=== PATIENT | female | born 1950 | race Caucasian/White ===

== ENCOUNTER → 2017-06-10 | Outpatient (CLI) | payer OTHER | END | disposition home or self-care (01) | LOC: OIH 13:07 | PROVIDERS: ATTEND Internal Medicine | DX: I10 Essential (primary) hypertension (principal); I70.0 Atherosclerosis of aorta | CPT/HCPCS: 71046 ==

== ENCOUNTER → 2018-04-25 | Outpatient (CLI) | payer OTHER | END | disposition home or self-care (01) | LOC: OIH 13:32 | PROVIDERS: ATTEND Internal Medicine | DX: I10 Essential (primary) hypertension (principal) | CPT/HCPCS: 71046 ==

== ENCOUNTER → 2018-11-19 | Outpatient (CLI) | payer OTHER ==
[2018-11-19 14:11] LABS: POTASSIUM 4.5 mmol/L (3.5-5.1)
== END | disposition home or self-care (01) ==
LOC: LAB 13:22
PROVIDERS: ATTEND Internal Medicine
DX: S96.919A Strain of unspecified muscle and tendon at ankle and foot level, unspecified foot, initial encounter (principal); B36.0 Pityriasis versicolor; E11.42 Type 2 diabetes mellitus with diabetic polyneuropathy; X58.XXXA Exposure to other specified factors, initial encounter; Y93.89 Activity, other specified; Y92.89 Other specified places as the place of occurrence of the external cause; Y99.8 Other external cause status
CPT/HCPCS: 36415; 80048

== ENCOUNTER → 2018-11-20 | Outpatient (CLI) | payer OTHER ==
[~2018-11-20] MED LIST: IOHEXOL-350 50ML VIAL IV ONE
== END | disposition home or self-care (01) ==
LOC: RAH 13:52
PROVIDERS: ATTEND Internal Medicine
DX: S96.919A Strain of unspecified muscle and tendon at ankle and foot level, unspecified foot, initial encounter (principal); M79.671 Pain in right foot; X58.XXXA Exposure to other specified factors, initial encounter; Y93.89 Activity, other specified; Y92.89 Other specified places as the place of occurrence of the external cause; Y99.8 Other external cause status
CPT/HCPCS: 73702; Q9967

== ENCOUNTER → 2018-12-11 | Outpatient (CLI) | payer OTHER | END | disposition home or self-care (01) | LOC: OIH 14:07 | PROVIDERS: ATTEND Internal Medicine | DX: M77.32 Calcaneal spur, left foot (principal); M79.89 Other specified soft tissue disorders | CPT/HCPCS: 73620 ==

== ENCOUNTER → 2019-03-27 | Outpatient (CLI) | payer OTHER | END | disposition home or self-care (01) | LOC: OIH 14:44 | PROVIDERS: ATTEND Internal Medicine | DX: I10 Essential (primary) hypertension (principal) | CPT/HCPCS: 71046 ==

== ENCOUNTER → 2019-04-24 | Outpatient (CLI) | payer OTHER ==
[~2019-04-24] MED LIST changes: -IOHEXOL-350 50ML VIAL IV ONE; +IOHEXOL-350 75 ML VIAL IV ONE
== END | disposition home or self-care (01) ==
LOC: RAH 13:54
PROVIDERS: ATTEND Internal Medicine
DX: M47.26 Other spondylosis with radiculopathy, lumbar region (principal); M25.78 Osteophyte, vertebrae; I70.90 Unspecified atherosclerosis; G95.9 Disease of spinal cord, unspecified
CPT/HCPCS: 72133; Q9967

== ENCOUNTER → 2019-06-18 | Outpatient (CLI) | payer OTHER ==
[2019-06-18 11:46] LABS: CREATININE 0.9 mg/dL (0.5-1.5)
== END | disposition home or self-care (01) ==
LOC: LAB 10:53
PROVIDERS: ATTEND Neurological Surgery
DX: M48.062 Spinal stenosis, lumbar region with neurogenic claudication (principal)
CPT/HCPCS: 36415; 82565; 84520

== ENCOUNTER → 2019-07-17 | Outpatient (CLI) | payer OTHER ==
[2019-07-17 10:53] LABS: BILIRUBIN,TOTAL 0.6 mg/dL (0.2-1.0); CREATININE 0.9 mg/dL (0.5-1.5); POTASSIUM 5.3 mmol/L (3.5-5.1); TOTAL PROTEIN, SERUM 7.6 g/dL (6.0-8.3)
[2019-07-17 10:55] LABS: HEMOGLOBIN A1C 7.9 % (4.0-6.0)
[2019-07-17 11:05] LABS: THYROID STIMULATING HORMONE 0.81 uIU/mL (0.36-3.74)
== END | disposition home or self-care (01) ==
LOC: LAB 09:38
PROVIDERS: ATTEND Internal Medicine
DX: E11.69 Type 2 diabetes mellitus with other specified complication (principal); E11.59 Type 2 diabetes mellitus with other circulatory complications; K76.0 Fatty (change of) liver, not elsewhere classified; E03.8 Other specified hypothyroidism; I10 Essential (primary) hypertension; Z12.11 Encounter for screening for malignant neoplasm of colon
CPT/HCPCS: 36415; 80053; 82270; 83036; 84439; 84443

== ENCOUNTER → 2019-07-24 | Outpatient (CLI) | payer OTHER ==
[~2019-07-24] MED LIST changes: +GADODIAMIDE 10 MMOL/20 ML VIAL IV ONE; -IOHEXOL-350 75 ML VIAL IV ONE
== END | disposition home or self-care (01) ==
LOC: RAH 10:00
PROVIDERS: ATTEND Internal Medicine
DX: M51.36 Other intervertebral disc degeneration, lumbar region (principal); M51.26 Other intervertebral disc displacement, lumbar region; M48.061 Spinal stenosis, lumbar region without neurogenic claudication
CPT/HCPCS: 72158; A9579

== ENCOUNTER → 2019-10-28 | Outpatient (CLI) | payer OTHER | END | disposition home or self-care (01) | LOC: OIH 13:40 | PROVIDERS: ATTEND Physical Medicine & Rehabilitation | DX: M19.071 Primary osteoarthritis, right ankle and foot (principal) | CPT/HCPCS: 73630 ==

== ENCOUNTER → 2019-11-16 | Outpatient (CLI) | payer OTHER | END | disposition home or self-care (01) | LOC: RAH 13:46 | PROVIDERS: ATTEND Physical Medicine & Rehabilitation | DX: R29.6 Repeated falls (principal) | CPT/HCPCS: 70551 ==

== ENCOUNTER → 2021-02-27 | Outpatient (CLI) | payer OTHER | END | disposition home or self-care (01) | LOC: RAH 13:00 | PROVIDERS: ATTEND Internal Medicine | DX: M19.071 Primary osteoarthritis, right ankle and foot (principal); M79.671 Pain in right foot | CPT/HCPCS: 73700 ==

== ENCOUNTER → 2021-12-21 | Outpatient (CLI) | payer OTHER | END | disposition home or self-care (01) | LOC: RAH 14:00 | PROVIDERS: ATTEND Internal Medicine | DX: M19.071 Primary osteoarthritis, right ankle and foot (principal); M47.814 Spondylosis without myelopathy or radiculopathy, thoracic region; M79.89 Other specified soft tissue disorders; Z98.890 Other specified postprocedural states | CPT/HCPCS: 73700 ==

== ENCOUNTER → 2023-02-07 | Outpatient (CLI) | payer OTHER | END | disposition home or self-care (01) | LOC: RAH 13:01 | PROVIDERS: ATTEND Internal Medicine | DX: K57.30 Diverticulosis of large intestine without perforation or abscess without bleeding (principal); K57.92 Diverticulitis of intestine, part unspecified, without perforation or abscess without bleeding; Z90.49 Acquired absence of other specified parts of digestive tract | CPT/HCPCS: 74176 ==